=== PATIENT | male | born 1985 | race Caucasian/White ===

== ENCOUNTER 2016-12-02 23:04 | Inpatient (IN) | payer OTHER ==
--- NOTE | 2016-12-08 04:15 | NUR ---
A ROOM WAS MADE AVAILABLE FOR PATIENT AT [facility] PER A CALL FROM KERA OF TRANSFER LINE AT 0111. PATIENT WAS MADE AWARE OF THE BED AVAILABILITY AND THE PATIENT'S REQUEST/CONSENT TO TRANSFER FORM WAS SIGNED BY THE PATIENT AT 0304. PT WAS TOLD THAT THE AMBULANCE WOULD BE CALLED AND HE SAID THAT WAS OKAY. REPORT WAS GIVEN TO MAXIME ANGELES AT AT 0245. AMBULANCE ARRIVED 0330. PT ASKED IF HE HAD TIME TO GO DOWN TO [place] AND WAS TOLD "NO". UPON SPEAKING WITH THE AMBULANCE PERSONNEL, THE PT WAS REFUSING TO GO BY AMBLUANCE HE WAS TOLD THEY COULDN'T BE SURE THAT HIS INSURANCE, MEDICAID, WOULD PAY FOR THE SERVICE. KERA OF WAS CALLED BACK TO [place] IF A DIRECT ADMIT PATIENT COULD TRANSPORT THEMSELVES TO THE HOSPITAL. SHE STATED THAT IF THE PT WAS REFUSING, WE SHOULD CONTACT THE PHYSICIAN WITH THE UNDERSTANDING THAT IF DOCTOR STILL WANTED THE PATIENT TO GO BY AMBULANCE AND THE PATIENT REFUSED, THE AVAILABLE BED COULD BE LOST. DR. VILLATORO WAS CONTACTED 0355 AND ADVISED OF THE SITUATION. HE GAVE PERMISSION FOR THE PATIENT TO GO BY PRIVATE VEHICLE. PATIENT'S IV WAS REMOVED AND AMBULANCE RELEASED AT 0359. PATIENT LEFT THE FLOOR AT 0407. NURSE, BRIDGETTE, WAS NOTIFIED OF THE CHANGE OF MODE OF TRANSPORT AND THAT THE IV WAS REMOVED.
== END 2016-12-08 04:07 | disposition short-term general hospital (02) | DRG 602 ==
LOC: ER 23:04 → MED 12-03 01:28
PROVIDERS: ADMIT Internal Medicine
DX: L03.116 Cellulitis of left lower limb (principal); I33.0 Acute and subacute infective endocarditis; R78.81 Bacteremia; E87.1 Hypo-osmolality and hyponatremia; B96.89 Other specified bacterial agents as the cause of diseases classified elsewhere; D50.9 Iron deficiency anemia, unspecified; Z95.2 Presence of prosthetic heart valve; F17.210 Nicotine dependence, cigarettes, uncomplicated; Z82.49 Family history of ischemic heart disease and other diseases of the circulatory system
CPT/HCPCS: 36415; 96372; J0696; J1650; J3370; J7050